=== PATIENT | female | born 1945 | race Caucasian/White ===

== ENCOUNTER 2019-11-25 07:50 | Day surgery (SDC) | payer MEDICARE, OTHER ==
[2019-11-25] MEDS ORDERED: fentaNYL 100 MCG/2 ML SDV ONE (08:11)
[2019-11-25] MEDS ORDERED: Dexamethasone 4 MG/ML SDV ONE (08:12)
[2019-11-25] MEDS ORDERED: Ondansetron 4 MG/2 ML SDV ONE (08:12)
[2019-11-25] MEDS ORDERED: Glycopyrrolate 0.2 MG/ML 5 ML MDV ONE (08:12)
[2019-11-25] MEDS ORDERED: Neostigmine Methylsulfate 1 MG/ML 5 ML Syringe ONE (08:12)
[2019-11-25] MEDS ORDERED: Rocuronium 50 MG/5 ML Vial ONE (08:12)
[2019-11-25] MEDS ORDERED: Midazolam 1 MG/ML 2 ML SDV ONE (08:12)
[2019-11-25] MEDS ORDERED: Propofol 200 MG/20 ML SDV ONE (08:12)
[2019-11-25] MEDS ORDERED: Bupivacaine 0.5% 30 ML SDV ONE (08:15)
[2019-11-25] MEDS ORDERED: Lactated Ringers 1,000 ML IV SCH (08:30)
[2019-11-25] MEDS: Nozin Nasal Sanitizer NASBOTH SCH ×2 (08:42→21:39)
[2019-11-25] MEDS ORDERED: Povidone-Iodine 10% Soln 118.25 ML Bottle ONE (08:48)
[2019-11-25] MEDS ORDERED: Scopolamine 1.5 MG Transdermal Patch TOP SCH (09:00)
[2019-11-25] MEDS ORDERED: ceFAZolin 2 GM in Premix Bag 1 BAG IV ONE (09:00)
[2019-11-25] MEDS ORDERED: ePHEDrine 50 MG/ML SDV ONE (12:03)
[2019-11-25] MEDS ORDERED: Sodium Chloride 0.9% 10 ML ONE (12:03)
[2019-11-25] MEDS ORDERED: Morphine 2 MG/ML SYRINGE IVPUSH PRN (13:19)
[2019-11-25] MEDS ORDERED: Acetaminophen 325 MG Tab PO PRN (13:19)
[2019-11-25] MEDS ORDERED: Acetaminophen/oxyCODONE 325-5 MG Tab PO PRN (13:19)
[2019-11-25] MEDS ORDERED: Acetaminophen/HYDROcodone 325-5 MG Tab PO PRN (13:19)
[2019-11-25] MEDS ORDERED: Ondansetron 4 MG/2 ML SDV IVPUSH PRN (13:19)
[2019-11-25] MEDS ORDERED: Sodium Chloride 0.9% 1,000 ML IV SCH (13:30)
[2019-11-25] MEDS: SCOPOLAMINE PATCH CHECK TOP SCH (14:08)
[2019-11-25] MEDS: Ketorolac 30 MG/ML SDV IVPUSH SCH ×2 (15:13→23:57)
[2019-11-25] MEDS: ceFAZolin 1 GM in Premix Bag 1 BAG IV SCH (18:24)
[2019-11-25] MEDS: Docusate Sodium 100 MG Cap PO SCH (21:39)
[2019-11-26] MEDS: ceFAZolin 1 GM in Premix Bag 1 BAG IV SCH (03:18)
[2019-11-26] MEDS: Ketorolac 30 MG/ML SDV IVPUSH SCH (07:05)
[2019-11-26] MEDS ORDERED: Pantoprazole 40 MG Tab.CR PO SCH (07:30)
[2019-11-26] MEDS ORDERED: Levothyroxine 112 MCG Tab PO SCH (07:30)
[2019-11-26] MEDS: Docusate Sodium 100 MG Cap PO SCH (08:46)
[2019-11-26] MEDS: Nozin Nasal Sanitizer NASBOTH SCH (08:46)
[2019-11-26] MEDS: SCOPOLAMINE PATCH CHECK TOP SCH (08:48)
[2019-11-26] MEDS ORDERED: amLODIPine 5 MG Tab PO SCH (09:00)
[2019-11-26] MEDS ORDERED: Non-Formulary Medication 1 Each (Omeprazole [Omeprazole] 40 MG) PO SCH (09:00)
[2019-11-26] MEDS ORDERED: Aspirin 81 MG Tab.EC PO SCH (09:00)
[2019-11-26] MEDS ORDERED: Losartan 50 MG Tab PO SCH (09:00)
[2019-11-26] MEDS ORDERED: LOSARTAN POTASSIUM 100 MG PO SCH (09:00)
--- NOTE | 2019-11-26 10:04 | CR ---
Shoulder 1V Lt CLINICAL HISTORY: Postop FINDINGS: Patient is status post shoulder arthroplasty with a humeral prosthesis.. It appears well seated. Impression: Status post placement of a humeral head prosthesis.
--- NOTE | 2019-12-02 22:49 | OR ---
DATE OF PROCEDURE: 11/25/2019 SURGEON: Miguel A Singh MD PREOPERATIVE DIAGNOSES: 1. 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 POSTOPERATIVE DIAGNOSES: 1. 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 PROCEDURE: Left total shoulder arthroplasty using Arthrosurface OVO, head size 48 x 44 mm and a cemented glenoid polyethylene 19 x 20 mm. ANESTHESIA: Interscalene block with sedation. INDICATIONS: Ilia is a 73-year-old female with a history of persistent and progressive left shoulder pain for the past couple of years. She does have a history of previous rotator cuff tear and repair. X-ray, MRI, and examination are now consistent with osteoarthritis of the glenohumeral joint with an intact rotator cuff. She now presents for resurfacing total shoulder arthroplasty. Risks, benefits, potential complications of the procedure were discussed. DESCRIPTION OF PROCEDURE: After adequate anesthesia was obtained, the patient was placed in a modified beach-chair position. Left shoulder was then prepped and draped in a sterile fashion. Anterior incision was made, carried down through the subcutaneous tissues. Deltopectoral interval was identified and the cephalic vein was retracted laterally with the deltoid. Self-retaining retractor was placed beneath the deltoid and the conjoined tendon. Some scarring was noted between the deltoid and the previous cuff repair. The bicipital groove was identified, which by palpation revealed an absent long head tendon. The subscapularis was divided longitudinally approximately 1 cm from its insertion. Tag sutures were placed in the tendon and used to retract this medially. Dissection carried up into the rotator cuff interval and down along the humeral neck. A large inferior osteophyte was present. This was resected with a rongeur, beginning anteriorly, moving inferiorly and around into the posterior aspect with the arm externally rotated. A capsular release was completed along the inferior neck, along with approximately 6 to 8 mm release of the superior pectoralis. This allowed adequate external rotation of the humeral head. Articular surface bone loss was present. The humeral head was sized to a 48 x 44 mm component. Centering guide was placed and a guide pin was placed into the humeral head. Centering guide was removed. The humeral head was prepared using the appropriate sized reamers. Once this portion had been completed, guide pin was removed and a humeral head retractor was placed exposing the glenoid. The glenoid labrum was actually fairly well preserved with minimal scuffing. No significant defect of the glenoid was present. Central articular cartilage loss was present. The drill guide for the glenoid component was centered over the defect and a guide pin was drilled into the glenoid surface. Glenoid reamer was placed over the guide pin and drilled to the appropriate depth. This was removed and the trial glenoid component was placed, which showed good position without prominence. Guide was replaced and the central peg was drilled with a flexible drill. An awl was used to create additional channels for fixation. The glenoid was thoroughly irrigated. Half batch of Simplex cement was mixed, pressurized into the defect and the glenoid component was then seated and the excess cement was removed. Component was held with pressure as the cement cured. When this was completed, attention was returned to the humeral head. A guide pin was again placed and the center portion drilled for the tapered screw. This was screwed into position with excellent purchase. Depth was confirmed. Humeral head was irrigated and the OVO articular surface was secured into the tapered screw. Any remaining osteophytes were removed with a rongeur. Shoulder was irrigated and reduced. It was taken through range of motion. Humeral head centered well in the glenoid and had approximately 50% translation anterior to posterior and very good range of motion with no evidence of any bony impingement. It was irrigated once again. The subscapularis was repaired back to its insertion using #2 Ethibond, using combination of Toi- Reymundo suture and oversewn with interrupted [id number] sutures. This provided very good repair with external rotation to approximately 30 degrees without significant tension. Deltopectoral interval was allowed to close. No significant bleeding was identified. Skin was closed with 2-0 Vicryl and a running 3-0 Monocryl. Steri-Strips were applied. Sterile dressing was then placed. The patient tolerated the procedure very well. There were no complications. She was taken from the operating room in stable condition. Miguel A Singh MD /[id number] RICA
--- NOTE | 2020-02-22 10:34 | PCM.DCSUM1 ---
Discharge Summary - Hospital Course HPI Initial Comments: 74 year old female with progressive shoulder pain admitted for total shoulder arthroplasty. Diagnosis: Stroke: No Modified [place] Scale: No Symptoms at All Modified [place] Scale Score: 0 - Discharge Data Discharge Date: 11/26/19 Discharge Disposition: Home, Self-Care 01 Condition: Good - Referral to Home Health Date of Face to Face Encounter: 11/26/19 Primary Care Physician: Darrius Wallis MD - Discharge Diagnosis/Problem(s) (1) Osteoarthritis, shoulder Status: Acute Qualifiers: Osteoarthritis type: primary Laterality: left Qualified Code(s): M19.012 - Primary osteoarthritis, left shoulder (2) Status post total replacement of left shoulder SNOMED Code(s): 507568732, [id number] ICD Code: Z96.612 - PRESENCE OF LEFT ARTIFICIAL SHOULDER JOINT Status: Acute - Patient Summary/Data Operative Procedure(s) Performed: Left total shoulder, OVO resurfacing Complications: None Consults: Consultations 11/25/19 13:19 PT Evaluation and Treatment [CONS] Routine Please Evaluate and Treat. PT Reason for Consult: Post op Ortho Surgery Special Instructions: S/P left total shoulder, ROM elbow and ambulation This query below is only for informational purposes and is not editable. PT Evaluation and Treatment [CONS] Routine Please Evaluate and Treat. PT Reason for Consult: Post op Ortho Surgery Knee Pending Discharge: Yes, 1- 2 days Special Instructions: Schedule first outpatient PT appointment in 3-5 day post discharge. This query below is only for informational purposes and is not editable. Hospital Course: Tolerated surgery well, no complications. Uneventful overnight stay. Block still working for pain, hand motion returning. Dressing changed, incision looks good. Follow up 2 weeks. - Patient Instructions Diet: Usual Diet as Tolerated Activity: Apply Ice, As Tolerated Activity, Other: No external rotation of left shoulder, no lifting more than 2 lbs Driving: Do Not Drive Showering/Bathing: May Shower Wound/Incision Care: Keep Operative Site/Wound Site Clean and Dry Notify Provider of: Fever, Increased Pain, Swelling and Redness, Drainage - Discharge Plan *PRESCRIPTION DRUG MONITORING PROGRAM REVIEWED*: No *COPY OF PRESCRIPTION DRUG MONITORING REPORT IN PATIENT GEM: No Home Medications: Home Meds Aspirin [Ecotrin EC] 81 mg PO DAILY 11/26/18 [History] Calcium Carbonate/Vitamin D3 [Calcium 1,000 + D3 Caplet] 1 tab PO TID 11/26/18 [History] Cyanocobalamin (Vitamin B-12) [B-12] 1,000 mg PO DAILY 11/26/18 [History] Losartan Potassium 100 mg PO DAILY 11/26/18 [History] Thiamine HCl [Vitamin B-1] 250 mg PO DAILY 11/26/18 [History] amLODIPine Besylate [Amlodipine Besylate] 10 mg PO DAILY 11/26/18 [History] Levothyroxine Sodium [Synthroid] 112 mcg PO DAILY 01/15/19 [History] Vit C/E/Zn/Coppr/Lutein/Zeaxan [Preservision Areds 2 Softgel] 1 tab PO BID 08/06/19 [History] Omeprazole 40 mg PO DAILY 11/25/19 [History] Oxygen Therapy Mode: Room Air Referrals: Miguel A Singh MD [Physician] - 12/08/19 - Discharge Summary/Plan Comment DC Time >30 min.: No - General Info Functional Status: Reports: Pain Controlled, Tolerating Diet, Ambulating, Urinating - Review of Systems General: Reports: No Symptoms HEENT: Reports: No Symptoms Pulmonary: Reports: No Symptoms Cardiovascular: Reports: No Symptoms Gastrointestinal: Reports: No Symptoms Genitourinary: Reports: No Symptoms Musculoskeletal: Reports: No Symptoms Skin: Reports: No Symptoms Neurological: Reports: No Symptoms Psychiatric: Reports: No Symptoms - Patient Data Vitals - Most Recent: Last Vital Signs Temp 36.3 C 11/26/19 07:10 Pulse 64 11/26/19 07:10 Resp 16 11/26/19 07:10 BP 130/62 11/26/19 08:48 Pulse Ox 91 L 11/26/19 07:10 Weight - Most Recent: 77.111 kg Med Orders - Current: Current Medications Discontinued Medications Acetaminophen (Tylenol) 650 mg PO Q4H PRN PRN Reason: Pain/Fever Hydrocodone Bitart/Acetaminophen ([place] 325-5 Mg) 1 tab PO Q3H PRN PRN Reason: Pain (mild 1-3) Amlodipine Besylate (Norvasc) [address] [facility] Last Admin: 11/26/19 08:48 Dose: 5 mg Documented by: Aspirin (Halfprin) [address] [facility] Last Admin: 06/04/20 08:48 Dose: 81 mg Documented by: Bandage/Support Products ( Nasal Bindery Cutter Operator) [address] [facility] Last Admin: 11/26/19 08:46 Dose: 1 swab Documented by: Bupivacaine HCl (Marcaine 0.5%) Confirm Administered Dose 60 ml .ROUTE .STK-MED ONE Stop: 11/25/19 08:16 Dexamethasone (Dexamethasone) Confirm Administered Dose 4 mg .ROUTE .STK-MED ONE Stop: 11/25/19 08:13 Docusate Sodium (Colace) [address] [facility] Last Admin: 11/26/19 08:46 Dose: 100 mg Documented by: Ephedrine Sulfate (Ephedrine Sulfate) Confirm Administered Dose 50 mg .ROUTE .STK-MED ONE Stop: 11/25/19 12:04 Fentanyl (Sublimaze) Confirm Administered Dose 100 mcg .ROUTE .STK-[facility] ONE Stop: 11/25/19 08:12 Glycopyrrolate (Robinul) Confirm Administered Dose 1 mg .ROUTE .STK-MED ONE Stop: 11/25/19 08:13 Cefazolin Sodium/Dextrose 2 gm (/ Premix) 50 mls @ 100 mls/hr IV ONETIME ONE Stop: 11/25/19 09:29 Last Admin: 11/25/19 11:20 Dose: 100 mls/hr Documented by: Lactated Ringer's (Ringers, Lactated) 1,000 mls @ 75 mls/hr IV ASDIRECTED [facility] Last Admin: 11/25/19 08:42 Dose: 75 mls/hr Documented by: Sodium Chloride (Normal Saline) Confirm Administered Dose 10 mls @ as directed .ROUTE .STK-MED ONE Stop: 11/25/19 12:04 Cefazolin Sodium/Dextrose 1 gm (/ Premix) 50 mls @ 100 mls/hr IV Q8H [facility] Stop: 11/26/19 10:59 Last Admin: 11/26/19 03:18 Dose: 100 mls/hr Documented by: Sodium Chloride (Normal Saline) 1,000 mls @ 125 mls/hr IV ASDIRECTED [facility] Last Admin: 11/25/19 15:21 Dose: 125 mls/hr Documented by: Ketorolac Tromethamine (Toradol) [address] [facility] Stop: 11/26/19 16:01 Last Admin: 11/26/19 07:05 Dose: 15 mg Documented by: Levothyroxine Sodium (Levothyroxine) [address] [facility] Last Admin: 11/26/19 07:04 Dose: 112 mcg Documented by: Losartan Potassium (Cozaar) [address] [facility] Last Admin: 11/26/19 08:47 Dose: 100 mg Documented by: Midazolam HCl (Versed 1 Mg/Ml) Confirm Administered Dose 2 mg .ROUTE .STK-MED ONE Stop: 11/25/19 08:13 Morphine Sulfate (Morphine) 2 mg IVPUSH Q1H PRN PRN Reason: Breakthrough Pain Neostigmine Methylsulfate (Neostigmine) Confirm Administered Dose 5 mg .ROUTE .STK-MED ONE Stop: 11/25/19 08:13 Scopolamine Patch (Check) [address] [facility] Last Admin: 11/26/19 08:48 Dose: Not Given Documented by: Ondansetron HCl (Zofran) Confirm Administered Dose 4 mg .ROUTE .STK-MED ONE Stop: 11/25/19 08:13 Ondansetron HCl (Zofran) 4 mg IVPUSH Q6H PRN PRN Reason: Nausea/Vomiting Oxycodone/Acetaminophen (Percocet 325-5 Mg) 2 tab PO Q4H PRN PRN Reason: Pain Pantoprazole Sodium (Protonix) [address] [facility] Last Admin: 11/26/19 07:04 Dose: 40 mg Documented by: Povidone Iodine (Betadine 10% Soln) Confirm Administered Dose 1 ml .ROUTE .STK- MED ONE Stop: 11/25/19 08:49 Last Admin: 11/25/19 12:08 Dose: 15 ml Documented by: Propofol (Diprivan 20 Ml) Confirm Administered Dose 200 mg .ROUTE .STK-MED ONE Stop: 11/25/19 08:13 Rocuronium [place] (Zemuron) Confirm Administered Dose 50 mg .ROUTE .STK-MED ONE Stop: 11/25/19 08:13 Scopolamine (Transderm-Scop) 1.[address] [facility] Stop: 11/28/19 08:30 Last Admin: 11/25/19 08:40 Dose: 1.5 mg Documented by: - Exam General: Reports: Alert, Oriented HEENT: Reports: Pupils Equal, Pupils Reactive, EOMI, Mucous Membr. Moist/[place] Neck: Reports: Supple Lungs: Reports: Clear to Auscultation, Normal Respiratory Effort Cardiovascular: Reports: Regular Rate, Regular Rhythm GI/Abdominal Exam: Normal Bowel Sounds, Soft, Non-Tender, No Distention (Female) Exam: Deferred Rectal (Female) Exam: Deferred Back Exam: Reports: Normal Inspection Extremities: Limited Range of Motion Skin: Reports: Warm, Dry Wound/Incisions: Reports: Healing Well, No Drainage Neurological: Reports: No New Focal Deficit Psy/Mental Status: Reports: Alert, Normal Affect, Normal Mood
== END 2019-11-26 10:03 | disposition home or self-care (01) ==
LOC: JP.SDS 07:50 → JP.MS 13:19 → JP.SDS 11-26 10:03
PROVIDERS: ATTEND Specialist
DX: M19.012 Primary osteoarthritis, left shoulder (principal); M62.1 Other rupture of muscle (nontraumatic); M25.712 Osteophyte, left shoulder; E78.5 Hyperlipidemia, unspecified; I12.9 Hypertensive chronic kidney disease with stage 1 through stage 4 chronic kidney disease, or unspecified chronic kidney disease; N18.3 Chronic kidney disease, stage 3 (moderate); E66.9 Obesity, unspecified; E03.9 Hypothyroidism, unspecified; K21.9 Gastro-esophageal reflux disease without esophagitis; E78.00 Pure hypercholesterolemia, unspecified; Z79.890 Hormone replacement therapy; Z88.5 Allergy status to narcotic agent; Z88.8 Allergy status to other drugs, medicaments and biological substances; Z88.0 Allergy status to penicillin; Z68.31 Body mass index [BMI] 31.0-31.9, adult
CPT/HCPCS: 23472; 73020; 97161; A9270; C1713; J0690; J1100; J1885; J2250; J2405; J2704; J2710; J3010; J3490; J7030; J7120; C1776

== ENCOUNTER 2019-11-29 10:32 | Emergency (ER) | payer MEDICARE, OTHER ==
--- NOTE | 2019-11-29 11:00 | EDM.PDOC ---
ED HPI GENERAL MEDICAL PROBLEM - General Chief Complaint: Upper Extremity Injury/Pain Stated Complaint: LT SHOULDER PAIN Time Seen by Provider: 11/29/19 10:40 Source of Information: Reports: Patient History Limitations: Reports: No Limitations - History of Present Illness INITIAL COMMENTS - FREE TEXT/NARRATIVE: 73-year-old female with left shoulder pain since having surgery 4 days ago. She is supposed to start physical therapy on Saturday and has been trying to control pain which is Tylenol and is not tolerating it. She is very sensitive to narcotics, and has chronic kidney problems and has been told to avoid anti- inflammatories. She has had no fevers or chills, no reinjury or falls, and has normal bruising about the shoulder. Onset: Gradual Duration: Day(s): (Pain since surgery) Left Shoulder Pain Score (Numeric/FACES): 10 - Related Data Allergies Allergy/AdvReac Type Severity Reaction Status Date / Time benzocaine Allergy Other Verified 11/29/19 10:41 Iodinated Contrast Media Allergy Hives Verified 11/29/19 10:41 [Iodinated Contrast- Oral and IV Dye] Penicillins Allergy Rash Verified 11/29/19 10:41 pneumococcal vaccine Allergy Rash Verified 11/29/19 10:41 [From Pneumovax 23] tramadol Allergy Dizziness Verified 11/29/19 10:41 codeine AdvReac Nausea and Verified 11/29/19 10:41 Vomiting morphine AdvReac Nausea Verified 11/29/19 10:41 Home Meds: Home Meds Aspirin [Ecotrin EC] 81 mg PO DAILY 11/26/18 [History] Calcium Carbonate/Vitamin D3 [Calcium 1,000 + D3 Caplet] 1 tab PO TID 11/26/18 [ History] Cyanocobalamin (Vitamin B-12) [B-12] 1,000 mg PO DAILY 11/26/18 [History] Losartan Potassium 100 mg PO DAILY 11/26/18 [History] Thiamine HCl [Vitamin B-1] 250 mg PO DAILY 11/26/18 [History] amLODIPine Besylate [Amlodipine Besylate] 5 mg PO DAILY 11/26/18 [History] Levothyroxine Sodium [Synthroid] 112 mcg PO DAILY 01/15/19 [History] Vit C/E/Zn/Coppr/Lutein/Zeaxan [Preservision Areds 2 Softgel] 1 tab PO BID 08/06 [History] Omeprazole 40 mg PO DAILY 11/25/19 [History] Past Medical History HEENT History: Reports: Impaired Vision Cardiovascular History: Reports: Hypertension Gastrointestinal History: Reports: Colon Polyp, GERD Genitourinary History: Reports: Chronic Renal Insuffiency 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 L shoulder pain. plate in neck, 2004 broken femur Endocrine/Metabolic History: Reports: Hypothyroidism Hematologic History: Reports: Blood Transfusion(s) - Past Surgical History HEENT Surgical History: Reports: None Cardiovascular Surgical History: Reports: None GI Surgical History: Reports: Appendectomy, Colonoscopy, EGD Female Surgical History: Reports: D&C, Tubal Ligation Musculoskeletal Surgical History: Reports: Arthroscopic Knee, Joint Replacement , Knee Replacement, Shoulder Replacement, Shoulder Surgery Other Musculoskeletal Surgeries/Procedures:: bilateral knee Social & Family History - Family History Family Medical History: Noncontributory - Tobacco Use Smoking Status *Q: Never Smoker - Caffeine Use Caffeine Use: Reports: Coffee - Recreational Drug Use Recreational Drug Use: No Review of Systems - Review of Systems Review Of Systems: See Below Constitutional: Denies: Fever Mouth/Throat: Reports: No Symptoms Respiratory: Reports: No Symptoms Cardiovascular: Reports: No Symptoms Genitourinary: Reports: Other (History of decreased kidney function) Musculoskeletal: Reports: Shoulder Pain Skin: Reports: Bruising (Postoperative bruising as expected) Neurological: Denies: Paresthesia ED EXAM, GENERAL - Physical Exam Exam: See Below Exam Limited By: No Limitations General Appearance: Alert, No Apparent Distress (Looks uncomfortable but not in acute distress) Head: Atraumatic Respiratory/Chest: No Respiratory Distress, Lungs Clear Cardiovascular: Regular Rate, Rhythm Extremities: Other (Steri-Strips are in place over the surgical incision on the anterior left shoulder, there is surrounding bruising typical of postoperative day 3 or 4. No drainage or warmth) Neurological: Alert, Oriented Course - Vital Signs Last Recorded V/S: Last Vital Signs Temp 97 F 11/29/19 10:45 Pulse 87 11/29/19 10:45 Resp 16 11/29/19 10:45 BP 146/79 H 06/07/20 10:45 Pulse Ox 95 11/29/19 10:45 - Orders/Labs/Meds Labs: Laboratory Tests 11/29/19 11/29/19 Range/Units 11:11 11:11 WBC 5.3 (4.5-11.0) K/uL RBC 3.80 (3.30-5.50) M/uL Hgb 12.0 (12.0-15.0) g/dL Hct 37.3 (36.0-48.0) % MCV 98 (80-98) fL MCH 32 H (27-31) pg MCHC 32 (32-36) % Plt Count 260 (150-400) K/uL Neut % (Auto) 54 (36-66) % Lymph % (Auto) 29 (24-44) % Wells % (Auto) 13 H (2-6) % Eos % (Auto) 4 (2-4) % Baso % (Auto) 1 (0-1) % Sodium 142 (140-148) mmol/L Potassium 4.1 (3.6-5.2) mmol/L Chloride 105 (100-108) mmol/L Carbon Dioxide 29 (21-32) mmol/L Anion Gap 7.7 (5.0-14.0) mmol/L BUN 15 (7-18) mg/dL Creatinine 1.1 H (0.6-1.0) mg/dL Est Cr Clr Drug Dosing 38.96 mL/min Estimated GFR (MDRD) 48 L (>60) Glucose 125 H (74-106) mg/dL Calcium 8.9 (8.5-10.1) mg/dL - Re-Assessments/Exams Free Text/Narrative Re-Assessment/Exam: 11/29/19 11:02 Reviewed the patient's records at the clinic and there is not been a creatinine or GFR done in 10 months. At that time her creatinine was 1.5 and GFR was 41. Those will be repeated today, I think she may need a few days of an anti- inflammatory to get through this pain especially if she refuses to take anything narcotic. Last year she could not tolerate tramadol. 11/29/19 11:31 CBC is normal, creatinine is now 1.1 and GFR 48 which is a fairly significant improvement over 10 months ago. She was discharged with naproxen to take 250 to 500 mg twice daily for the next 4 to 10 days, and also 10 doses of hydrocodone for breakthrough pain. She will return on Saturday for physical therapy as scheduled. Departure - Departure Time of Disposition: 11:43 Disposition: Home, Self-Care 01 Clinical Impression: Acute postoperative pain of left shoulder - Discharge Information Instructions: Shoulder Pain Referrals: Miguel A Singh MD [Primary Care Provider] - Forms: ED Department Discharge Care Plan Goals: Take 1 naproxen twice daily for the next 2 to 5 days, then decrease if able. Return for physical therapy on Saturday as scheduled. Try hydrocodone for breakthrough pain as directed. Avoid stronger pain medications if they cause too many side effects such as nausea and vomiting or dizziness. Sepsis Event Note - Evaluation Sepsis Screening Result: No Definite Risk - Focused Exam Vital Signs: Vital Signs Temp Pulse Resp BP Pulse Ox 11/29/19 10:45 97 F 87 16 146/79 H 95 Date Exam was Performed: 11/29/19 Time Exam was Performed: 13:59
== END 2019-11-29 11:44 | disposition home or self-care (01) ==
LOC: JP.ED 10:32
DX: G89.18 Other acute postprocedural pain (principal); M25.512 Pain in left shoulder; E03.9 Hypothyroidism, unspecified; I12.9 Hypertensive chronic kidney disease with stage 1 through stage 4 chronic kidney disease, or unspecified chronic kidney disease; N18.9 Chronic kidney disease, unspecified; K21.9 Gastro-esophageal reflux disease without esophagitis; Z88.0 Allergy status to penicillin; Z88.6 Allergy status to analgesic agent; Z91.041 Radiographic dye allergy status; Z88.8 Allergy status to other drugs, medicaments and biological substances; Z88.7 Allergy status to serum and vaccine; Z88.5 Allergy status to narcotic agent; Z79.82 Long term (current) use of aspirin; Z79.899 Other long term (current) drug therapy; Z98.890 Other specified postprocedural states
CPT/HCPCS: 36415; 80048; 85025; 99283

== ENCOUNTER 2020-04-09 10:30 | Emergency (ER) | payer MEDICARE, OTHER, MEDICAID ==
--- NOTE | 2020-04-09 11:21 | EDM.PDOC ---
ED HPI GENERAL MEDICAL PROBLEM - General Chief Complaint: Gastrointestinal Problem Stated Complaint: STOMACH ISSUES, HEADACHE Time Seen by Provider: 04/09/20 10:50 Source of Information: Reports: Patient, RN Notes Reviewed History Limitations: Reports: No Limitations - History of Present Illness INITIAL COMMENTS - FREE TEXT/NARRATIVE: 74-year-old female presents emergency department with a complaint of right upper quadrant pain, she was initially evaluated in clinic did have work-up done of CBC CMP plain film and Covid testing CBC unremarkable CMP does reveal sodium at 133 creatinine of 1.3 which is at her baseline AST slightly elevated at 50 2 plain film shows no acute process Covid is a send out and pending. She states over the last 3 to 4 days she has had increasing abdominal pain predominantly in the right upper quadrant does have a past surgical history of an appendectomy she has not been able to eat well no fevers or chills no shortness of breath no respiratory symptoms does complain of nausea no vomiting - Related Data Allergies Allergy/AdvReac Type Severity Reaction Status Date / Time benzocaine Allergy Other Verified 04/09/20 10:56 Iodinated Contrast Media Allergy Hives Verified 04/09/20 10:56 [Iodinated Contrast- Oral and IV Dye] Penicillins Allergy Rash Verified 04/09/20 10:56 pneumococcal vaccine Allergy Rash Verified 04/09/20 10:56 [From Pneumovax 23] tramadol Allergy Dizziness Verified 04/09/20 10:56 codeine AdvReac Nausea and Verified 04/09/20 10:56 Vomiting morphine AdvReac Nausea Verified 04/09/20 10:56 Home Meds: Home Meds Aspirin [Ecotrin EC] 81 mg PO DAILY 11/26/18 [History] Calcium Carbonate/Vitamin D3 [Calcium 1,000 + D3 Caplet] 1 tab PO TID 11/26/18 [History] Cyanocobalamin (Vitamin B-12) [B-12] 1,000 mg PO DAILY 11/26/18 [History] Losartan Potassium 100 mg PO DAILY 11/26/18 [History] Thiamine HCl [Vitamin B-1] 250 mg PO DAILY 11/26/18 [History] amLODIPine Besylate [Amlodipine Besylate] 10 mg PO DAILY 11/26/18 [History] Levothyroxine Sodium [Synthroid] 112 mcg PO DAILY 01/15/19 [History] Vit C/E/Zn/Coppr/Lutein/Zeaxan [Preservision Areds 2 Softgel] 1 tab PO BID 08/06/19 [History] Omeprazole 40 mg PO DAILY 11/25/19 [History] Past Medical History HEENT History: Reports: Impaired Vision Cardiovascular History: Reports: Hypertension Gastrointestinal History: Reports: Colon Polyp, GERD Genitourinary History: Reports: Chronic Renal Insuffiency [employer]ER History: Reports: Musculoskeletal History: Reports: Arthritis, Neck Pain, Chronic, Other (See Below) Other Musculoskeletal History: R shoulder pain, Hx total shoulder at [facility] 08/20/18. L shoulder pain. plate in neck, 2004 broken femur Endocrine/Metabolic History: Reports: Hypothyroidism Hematologic History: Reports: Blood Transfusion(s) - Past Surgical History GI Surgical History: Reports: Appendectomy, Colonoscopy, EGD Female Surgical History: Reports: D&C, Tubal Ligation Musculoskeletal Surgical History: Reports: Joint Replacement Other Musculoskeletal Surgeries/Procedures:: bilateral knee. right total shoulder. Lt total shoulder 11/25/19 Social & Family History - Family History Family Medical History: Noncontributory - Tobacco Use Tobacco Use Status *Q: Never Tobacco User - Caffeine Use Caffeine Use: Reports: Coffee ED ROS GENERAL - Review of Systems Review Of Systems: See Below Constitutional: Denies: Fever, Chills HEENT: Reports: No Symptoms Respiratory: Reports: No Symptoms Cardiovascular: Reports: No Symptoms GI/Abdominal: Reports: Abdominal Pain, Flatus, Nausea. Denies: Vomiting : Reports: No Symptoms ED EXAM, GI/ABD - Physical Exam Exam: See Below Exam Limited By: No Limitations General Appearance: Alert, WD/WN, No Apparent Distress Respiratory/Chest: No Respiratory Distress GI/Abdominal Exam: Normal Bowel Sounds, Soft, Tender (Epigastric region) Course - Vital Signs Last Recorded V/S: Last Vital Signs Temp 98.3 F 04/09/20 11:02 Pulse 69 04/09/20 11:02 Resp 18 04/09/20 11:02 BP 145/59 H 04/09/20 11:02 Pulse Ox 94 L 04/09/20 11:02 Departure - Departure Time of Disposition: 12:08 Disposition: Home, Self-Care 01 Condition: Fair Clinical Impression: Abdominal pain - Discharge Information Instructions: Abdominal Pain, Adult, [id number] Referrals: PCP,None [Primary Care Provider] - Forms: ED Department Discharge Additional Instructions: Try the Gas-X or Beano at home for symptomatic relief, please followup with your primary care provider in 3-5 days if not better, please call return to the emergency department with worsening of symptoms. Sepsis Event Note (ED) - Evaluation Sepsis Screening Result: No Definite Risk - Focused Exam Vital Signs: Vital Signs Temp Pulse Resp BP Pulse Ox 04/09/20 11:02 98.3 F 69 18 145/59 H 94 L 04/09/20 10:52 98.3 F 69 18 145/59 H 94 L - Assessment/Plan Plan: Assessment Acuity = acute Site and laterality = abdominal pain Etiology = unclear possibly related to amount of gas in the colon Manifestations = none Location of injury = Home Lab values = CT scan reveals no acute process I did review the lab work CBC CMP and plain film the abdomen from the clinic Covid test is pending from the clinic Plan I did review her CT scan and provided her a copy she is going to try Beano at home she states she has been holding her gas and she is afraid to pass gas because she will have loose stools with that. Have her follow-up with her primary care in the next 3 to 5 days for further evaluation if not better This note was dictated using [employer] voice recognition software please call with any questions on syntax or grammar.
--- NOTE | 2020-04-09 12:00 | CRLCT ---
INDICATION: Right upper quadrant pain for 2 days. COMPARISON: None available. TECHNIQUE: Routine axial CT images of the abdomen and pelvis were obtained without the use of intravenous or oral contrast per routine renal stone protocol. FINDINGS: No renal or ureteral calculi. No hydronephrosis. Mild cortical irregularity of the left kidney could be due to prior pyelonephritis or prior infarct. No ureterectasis. Incompletely distended urinary bladder. Atherosclerotic changes within the abdominal aorta with mild infrarenal aortic ectasia to 22 mm. Several pelvic phleboliths are seen. Colonic diverticulosis. No pancreatitis. The gallbladder is nondistended. Non cirrhotic liver morphology. The entire liver is not included in the field of view. The spleen is normal in size. Adrenal glands appear unremarkable. The uterus appears unremarkable. No obvious suspicious adnexal mass. Degenerative changes in spine without an aggressive appearing osseous lesion. Limited examination of the lung bases reveal mild subpleural scattered ground-glass opacities which are nonspecific and could represent areas of atelectasis; correlate clinically. IMPRESSION: 1. No renal or ureteral calculi. No hydronephrosis. 2. The gallbladder is nondistended without pericholecystic fluid. 3. Limited examination of the lung bases reveal mild subpleural scattered ground-glass opacities which are nonspecific and could represent areas of atelectasis; correlate clinically. 4. Colonic diverticulosis. 5. Atherosclerotic change with mild infrarenal abdominal aortic ectasia. Please note that all CT scans at this facility use dose modulation, iterative reconstruction, and/or weight-based dosing when appropriate to reduce radiation dose to as low as reasonably achievable. Dictated by Ky Hinojosa MD @ Apr 09 2020 11:50AM (Electronically Signed)
== END 2020-04-09 12:24 | disposition home or self-care (01) ==
LOC: JP.ED 10:30
DX: R10.13 Epigastric pain (principal); R10.11 Right upper quadrant pain; K21.9 Gastro-esophageal reflux disease without esophagitis; I12.9 Hypertensive chronic kidney disease with stage 1 through stage 4 chronic kidney disease, or unspecified chronic kidney disease; N18.9 Chronic kidney disease, unspecified; M19.90 Unspecified osteoarthritis, unspecified site; E03.9 Hypothyroidism, unspecified; Z88.4 Allergy status to anesthetic agent; Z91.041 Radiographic dye allergy status; Z88.0 Allergy status to penicillin; Z88.7 Allergy status to serum and vaccine; Z88.5 Allergy status to narcotic agent; Z79.82 Long term (current) use of aspirin; Z79.899 Other long term (current) drug therapy
CPT/HCPCS: 74176; 99282; 99284-25